=== PATIENT | male | born 1965 | race American Indian/Alaskan Native ===

== ENCOUNTER 2019-09-12 05:58 | Day surgery (SDC) | payer BC ==
[2019-09-12] MEDS ORDERED: BACTERIOSTATIC SODIUM CHLORIDE 0.9% 30 ML VIAL INFILTRATI ONE (06:09)
[2019-09-12] MEDS ORDERED: LACTATED RINGERS 1,000 ML IV SCH (07:22)
[2019-09-12] MEDS ORDERED: LACTATED RINGERS 1,000 ML ONE (07:27)
--- NOTE | 2019-09-12 07:34 | Anesthesia Day of Surgery ---
Anesthesia Day of Surgery - Day of Surgery Patient Examined: Yes Patient H&P Reviewed: Yes Patient is NPO: Yes
--- NOTE | 2019-09-12 07:34 | Anesthesia Consultation ---
Anesthesia Consult and Med Hx Date of service: 09/12/19 - Airway Anesthetic Teeth Evaluation: Good ROM Head & Neck: Adequate Mental/Hyoid Distance: Adequate Mallampati Class: Class II Intubation Access Assessment: Good - Pulmonary Exam CTA: Yes - Cardiac Exam Cardiac Exam: No Murmur - Pre-Operative Health Status ASA Pre-Surgery Classification: ASA2 Proposed Anesthetic Plan: General - Pulmonary Hx Smoking: No Hx Sleep Apnea: Yes (DX SLEEP APNEA WITH CPAP USE.) - Cardiovascular System Hx Hypertension: Yes (X 5 YRS) - Other Systems Hx Cancer: No
[2019-09-12] MEDS: MIDAZOLAM 2 MG/2 ML INJ IV NR ×2 (07:51→08:09)
[2019-09-12] MEDS ORDERED: ceFAZolin/STERILE WATER 2 GM/20 ML SYRINGE IV NR (08:00)
[2019-09-12] MEDS ORDERED: propofoL 200 MG/20 ML VIAL IV ONE (08:13)
[2019-09-12] MEDS ORDERED: fentaNYL 100 MCG/2 ML INJ ONE (08:14)
--- NOTE | 2019-09-12 09:11 | Short Stay Summary ---
Short Stay Documentation Date of service: 09/12/19 - History H&P: obtained from office - Allergies and Medications Current Medications: Allergies No Known Allergies Allergy (Verified 09/04/19 12:40) Home Medications Medication Instructions Recorded Confirmed Last Taken Type Tamsulosin [Flomax] 0.4 mg PO QDAY 09/04/19 09/04/19 09/11/19 History Ginkgo Biloba 60 mg PO DAILY 09/08/19 09/08/19 09/11/19 History Multivit-Mins/Iron/Folic/Lycop 1 each PO DAILY 09/08/19 09/08/19 09/11/19 History [Centrum Men's Tablet] Ubiquinol [Active-Q] 200 mg PO DAILY 09/08/19 09/08/19 09/11/19 History AtorvaSTATin [Lipitor] 20 mg PO DAILY 09/12/19 09/12/19 09/11/19 History Cyclobenzaprine 5 mg PO DAILY 09/12/19 09/12/19 09/11/19 History Triamterene-Hctz 37.5-25 mg Tb 1 tab PO DAILY 09/12/19 09/12/19 09/12/19 05:00 History Active Medications Cefazolin Sodium (Ancef/Sterile Water 2 Gm/20 Ml) 2 gm IV PREOP NR Stop: 09/12/19 16:00 Lactated Ringer's (Lactated Ringers) 1,000 mls @ 75 mls/hr IV DIRECT CORRIE Last Admin: 09/12/19 07:50 Dose: 75 mls/hr Documented by: Midazolam HCl (Versed) 2 mg IV ONCE NR Stop: 09/12/19 16:00 Last Admin: 09/12/19 08:09 Dose: 2 mg Documented by: - Brief post op/procedure progress note Date of procedure: 09/12/19 Pre-op diagnosis: voluntary sterilization Post-op diagnosis: same Procedure: bilat vasectomy Anesthesia: GETA Surgeon: ELENA TRUJILLO Estimated blood loss: minimal Pathology: list (vas) Specimen disposition: to lab Condition: stable - Hospital course Hospital course: flomax, bactrim, cipro, norco on chart surgeon gave cups to - Disposition Condition at discharge: Stable Disposition: DC-01 TO HOME OR SELFCARE Short Stay Discharge Plan Follow up with: CLARA CHAMBERS MD [Primary Care Provider] - 7 Days Forms: Outpatient Surgery DC Inst.
[2019-09-12] MEDS ORDERED: ONDANSETRON 4 MG/2 ML INJ ONE (09:18)
[2019-09-12] MEDS ORDERED: LIDOCAINE MPF (2%) 20 MG/1 ML VIAL 5 ML ONE (09:18)
[2019-09-12 09:58] VITALS: BP 138/92
--- NOTE | 2019-09-12 17:48 | Operative Report ---
PREOPERATIVE DIAGNOSIS: Voluntary sterilization. POSTOPERATIVE DIAGNOSES: Voluntary sterilization. PROCEDURE: Bilateral vasectomy. SURGEON: Dejan Mina MD ANESTHESIA: General. ESTIMATED BLOOD LOSS: Minimal. FLUIDS: Crystalloid. COMPLICATIONS: No complications. INDICATIONS: This 54-year-old gentleman presents with his for voluntary sterilization. The patient has multiple kids, all this 24 years of age. Discussed options. They agreed to proceed with surgical intervention. They actually was seen by Dr. Amari Balderas in our [facility] office; however, this [place] was closer to his home. Also, had a discussion regarding erectile dysfunction. Written information was given and will be evaluated in the office. DESCRIPTION OF PROCEDURE: The patient was taken to the operative suite, placed in a supine position. After adequate general anesthesia, prepped and draped in a sterile fashion. Left vas deferens was isolated with a towel clip. Bovie was used to excise the incision. Sharp dissection was taken down to dissect approximately 1 inch of the vas deferens. It was clamped on a proximal and distal in, one inch segment was excised. A 2-0 Vicryl was used to tie off both ins without difficulty. Similar procedure was performed on the right, so that was left and right side done. Cut ends were dropped back into the scrotum. Adequate hemostasis was achieved. Scrotum was closed with 3-0 chromic in interrupted fashion. Fluffs and scrotal support was placed. The patient tolerated the procedure well. He was extubated and taken to recovery room in stable condition. He was given 2 cups for semen analysis at 6 weeks and 3 months. He was given a Bactrim, Ultram and Sunshine and at his request to renew his Flomax. JOB# [id number] [facility]
== END 2019-09-12 10:50 | disposition home or self-care (01) ==
LOC: OR 05:58 → EDSEX 07:30 → OR 10:50
PROVIDERS: ATTEND Urology
DX: Z30.2 Encounter for sterilization (principal); G43.909 Migraine, unspecified, not intractable, without status migrainosus; E78.00 Pure hypercholesterolemia, unspecified; I10 Essential (primary) hypertension; G47.30 Sleep apnea, unspecified; Z98.890 Other specified postprocedural states; Z79.899 Other long term (current) drug therapy
CPT/HCPCS: 36415; 55250; 84132; 88302; J2250; J2405; J2704; J3010; J7120